=== PATIENT | male | born 1990 | race Caucasian/White ===

== ENCOUNTER 2016-11-30 10:44 | Emergency (ER) | payer OTHER ==
[~2016-11-30] VITALS: Ht 177.8 cm; Wt 166.4 kg
--- NOTE | 2016-11-30 11:51 | REP ---
Clinical: Trauma. Technique: AP, lateral, bilateral oblique views left hand . Findings: Subtle nondisplaced fracture involving the distal aspect of the third proximal phalanx requires correlation. Overlying soft tissue swelling is suggested. Remainder examination appears normal. Impression: Cannot exclude subtle nondisplaced fracture involving the head of the third digit proximal phalanx with overlying soft tissue swelling. Correlation is required. Signed by Zi Carter MD 11/30/2016 11:43 A
[2016-11-30] MEDS ORDERED: IBUP-1022 PO (13:00)
[2016-11-30 13:09] VITALS: BP 126/93
--- NOTE | 2016-12-01 16:07 | ED PDOC ---
Post-Departure Follow-Up certified letter sent to pt re formal report of left hand - needs fu Onel Corrales MD Dec 01, 2016 16:07
== END 2016-11-30 13:12 | disposition home or self-care (01) ==
LOC: M ED 10:44
DX: S69.92XA Unspecified injury of left wrist, hand and finger(s), initial encounter (principal); X58.XXXA Exposure to other specified factors, initial encounter; Y92.099 Unspecified place in other non-institutional residence as the place of occurrence of the external cause; Y93.9 Activity, unspecified; Y99.9 Unspecified external cause status; F17.200 Nicotine dependence, unspecified, uncomplicated